=== PATIENT | female | born 1970 | race Caucasian/White ===

== ENCOUNTER 2019-08-28 19:51 | Emergency (ER) | payer OTHER ==
[~2019-08-28] VITALS: Ht 162.6 cm; Wt 90.3 kg
[2019-08-28] MEDS ORDERED: ZESTRIL10 M1 PO (20:23)
[2019-08-28] MEDS ORDERED: ADRENOID CAPSU1 EACH (20:57)
[2019-08-28] MEDS ORDERED: FOLIC ACID0.8 M1 PO (20:58)
[2019-08-28] MEDS ORDERED: FEOSOL325 MG PO (20:58)
== END 2019-08-28 22:56 | disposition home or self-care (01) ==
LOC: ER 19:51
DX: B34.9 Viral infection, unspecified (principal)

== ENCOUNTER 2021-10-31 07:12 | Emergency (ER) | payer OTHER ==
[~2021-10-31] VITALS: Ht 165.1 cm; Wt 83.9 kg
[~2021-10-31 07:12] MED LIST: ADRENOID CAPSU1 EACH; FEOSOL325 MG PO; FOLIC ACID0.8 M1 PO; ZESTRIL10 M1 PO
[2021-10-31] MEDS ORDERED: IRBESARTAN-HCT1 EACH PO (07:29)
[2021-10-31] MEDS ORDERED: SULINDAC200 MG PO (07:30)
== END 2021-10-31 11:30 | disposition home or self-care (01) ==
LOC: ER 07:12
DX: J03.80 Acute tonsillitis due to other specified organisms (principal); J32.1 Chronic frontal sinusitis

== ENCOUNTER 2022-10-29 22:11 | Emergency (ER) | payer OTHER ==
[~2022-10-29] VITALS: Ht 165.1 cm; Wt 96.2 kg
[~2022-10-29 22:11] MED LIST changes: +IRBESARTAN-HCT1 EACH PO; +SULINDAC200 MG PO
[2022-10-30] MEDS ORDERED: CELEBREX200MG PO (00:05)
[2022-10-30] MEDS ORDERED: TYLENOL ARTHRI650 MG PO (00:05)
[2022-10-30] MEDS ORDERED: METAXALONE800 MG PO (00:05)
[2022-10-30] MEDS ORDERED: MEDROLPACK PO (00:05)
== END 2022-10-30 00:18 | disposition home or self-care (01) ==
LOC: ER 22:11
DX: M75.32 Calcific tendinitis of left shoulder (principal); I10 Essential (primary) hypertension

== ENCOUNTER 2023-09-19 23:53 | Emergency (ER) | payer OTHER ==
[~2023-09-19] VITALS: Ht 162.6 cm; Wt 98.9 kg
[~2023-09-19 23:53] MED LIST changes: +CELEBREX200MG PO; +MEDROLPACK PO; +METAXALONE800 MG PO; +TYLENOL ARTHRI650 MG PO
[2023-09-20] MEDS ORDERED: TOPROL XL25 M1 PO (00:02)
[2023-09-20] MEDS ORDERED: CHILDREN'S ASPI81 MG PO (00:03)
[2023-09-20] MEDS ORDERED: METHYLPREDNISOLONE SOD SUCC 125 MG VIAL IV STA (01:11)
[2023-09-20] MEDS ORDERED: ALBUTEROL SULFATE 3 ML/2.5 MG AMPUL.NEB IH SCH (01:15)
[2023-09-20 01:34] LABS: HEMATOCRIT 41.3 % (36.0-45.00); HEMOGLOBIN 13.7 g/dL (12.0-15.00); MEAN CELL VOLUME 83.4 fL (80.00-100.00); MEAN CORPUSCULAR HEMOGLOBIN 27.6 pg (27.00-32.0); MEAN CORPUSCULAR HGB CONC 33.1 g/dl (32.0-36.0); PLATELET COUNT 286 K/uL (150-450); RED BLOOD COUNT 4.96 M/uL (4.00-6.00); RED CELL DISTRIBUTION WIDTH 13.8 % (11.5-14.5)
[2023-09-20 01:46] LABS: ABG PH 7.435 (7.35-7.45); ABG PO2 97.1 mmHg (80-100); SaO2 97.8 %
[2023-09-20 01:47] LABS: BASE EXCESS 0.4 mmol/l; BICARBONATE 24.3 mmol/l (23-25); Tco2 25.4 mmol/l; allen test SATISFACTORY; o2 21 %; puncture site RADIAL LEFT
[2023-09-20 02:16] LABS: ALBUMIN 3.4 gm/dL (3.4-5.0); BILIRUBIN TOTAL 0.34 mg/dL (0.3-1.2); CALCIUM 9.9 mg/dL (8.5-10.1); CREATININE SERUM 0.94 mg/dL (0.55-1.02); GFR 62.53; GLOBULINA 4.6 G/DL (2.4-3.5); POTASSIUM 4.34 mEq/L (3.5-5.1)
[2023-09-20] MEDS ORDERED: ALBUTEROL2.5 MG/3 M IH (03:44)
[2023-09-20] MEDS ORDERED: SINGULAIR10 MG PO (03:44)
[2023-09-20] MEDS ORDERED: SYMBICORT 16010.2 GM IH (03:44)
[2023-09-20] MEDS ORDERED: ZYNCOF 20-400120 ML PO (03:44)
== END 2023-09-20 03:47 ==
LOC: ER 23:54
PROVIDERS: General Practice
DX: J40 Bronchitis, not specified as acute or chronic (principal); Z87.09 Personal history of other diseases of the respiratory system; Z91.013 Allergy to seafood; Z20.822 Contact with and (suspected) exposure to COVID-19; I10 Essential (primary) hypertension